=== PATIENT | female | born 1990 | race Hispanic/Latino ===

== ENCOUNTER 2018-05-08 17:32 | Emergency (ER) | payer SELFPAY ==
[~2018-05-08] VITALS: Ht 154.9 cm; Wt 79.4 kg
[2018-05-08 18:24] LABS: ABSOLUTE BASOPHIL COUNT 0 /CUMM (0.0-0.2); ABSOLUTE EOSINOPHIL COUNT 0 /CUMM (0.0-0.7); ABSOLUTE MONOCYTE COUNT 0.7 /CUMM (0.10-0.60); BASOPHIL % 0.3 % (0.0-2.0); EOSINOPHIL % 0.3 % (0-5); GRANULOCYTE % 71.6 % (42.2-75.2); HEMATOCRIT 38.1 % (37-47); MEAN CORPUSCULAR HGB 23.7 PG (27.0-31.0); MEAN CORPUSCULAR HGB CONC 31.9 G/DL (33.0-37.0); MEAN CORPUSCULAR VOLUME 74.2 FL (81.0-99.0); MEAN PLATELET VOLUME 12.6 FL (7.4-10.4); PLATELET COUNT 249 /CUMM (130-400); RBC DISTRIBUTION WIDTH 15.2 % (11.5-14.5); RED BLOOD CELL CT 5.14 /CUMM (4.20-5.40); WHITE BLOOD CELL COUNT 9.8 /CUMM (4.8-10.8)
--- NOTE | 2018-05-08 19:20 | ED GENERAL ADULT ---
History of Present Illness General Chief Complaint: General Adult Stated Complaint: "SWOLLEN GLANDS IN MY THROAT" Source: patient Exam Limitations: no limitations Vital Signs & Intake/Output Vital Signs & Intake/Output Vital Signs Date Time Temp Pulse Resp B/P B/P Pulse O2 O2 Flow FiO2 Mean Ox Delivery Rate 05/08 2008 82 18 147/65 100 Room Air 05/08 1832 70 18 132/60 100 Room Air 05/08 1829 Room Air 05/08 1739 97.7 85 20 134/84 98 Room Air Allergies Coded Allergies: acetaminophen (From PERCOCET) (UPSET STOMACH 05/08/18) oxycodone (From PERCOCET) (UPSET STOMACH 05/08/18) Triage Note: PT TO ED C/O LEFT SIDED LYMPHNODE SWELLING X 6 WEEKS ON AND OFF. STATES THIS AM NOTICED SWELLING UNDER CHIN. DENIES SORE THROAT, DENIES DIFFICULTY SWALLOWING, DENIES FEVERS. C/O FEELING "SORE" ALL OVER BODY. Triage Nurses Notes Reviewed? yes Onset: Abrupt Duration: week(s): (3), changing over time, continues in ED, intermittent Timing: single episode today Injury Environment: home Severity: mild, moderate Severity Numbers: 5 No Modifying Factors: none LMP (ages 10-50): unknown : No Patient currently breastfeeds: No HPI: 28 year old female history of anemia presents for evaluation of a swollen lymph node in her submental area. Patient reports that over the past 3 or 4 weeks she has had some swollen lymph nodes in her left submandibular area that have been present intermittently. She reports that she has had a breakout of pimples near where the lymph nodes are located. She states that a few days ago she developed a larger swollen lymph node under her chin. The area is tender. There is no redness no discharge no fever no sore throat or dental pain. She feels E fine. No weight loss night sweats fatigue. (Mathew Eldridge) Past History Travel History Traveled to [place] past 21 day No Medical History Any Pertinent Medical History? see below for history Blood Disorders: anemia Surgical History Surgical History: non-contributory Psychosocial History What is your primary language Hungarian Tobacco Use: Quit >30 days ago ETOH Use: denies use Illicit Drug Use: denies illicit drug use Family History Hx Contributory? No (Mathew Eldridge) Review of Systems Review of Systems Constitutional: Reports: no symptoms. EENTM: Reports: see HPI (lymphadenopathy). Respiratory: Reports: no symptoms. Cardiovascular: Reports: no symptoms. GI: Reports: no symptoms. Genitourinary: Reports: no symptoms. Musculoskeletal: Reports: no symptoms. Skin: Reports: no symptoms. Neurological/Psychological: Reports: no symptoms. Hematologic/Endocrine: Reports: no symptoms. Immunologic/Allergic: Reports: no symptoms. All Other Systems: Reviewed and Negative (Mathew Eldridge) Physical Exam Physical Exam General Appearance: well developed/nourished, no apparent distress, alert, awake Head: atraumatic, normal appearance Eyes: Bilateral: normal appearance, PERRL, EOMI. Ears, Nose, Throat: normal pharynx, normal ENT inspection, hearing grossly normal Neck: normal inspection, supple, full range of motion, submental lymphadenopathy , no anterior cervical submandibular or clavicular lymph nodes Respiratory: normal breath sounds, chest non-tender, no respiratory distress, lungs clear Cardiovascular: regular rate/rhythm, normal peripheral pulses Peripheral Pulses: 2+ radial (R), 2+ radial (L) Gastrointestinal: soft, non-tender Back: normal inspection, normal range of motion Extremities: normal inspection, normal range of motion, no edema Neurologic/Psych: no motor/sensory deficits, awake, alert, oriented x 3, normal gait Skin: intact, normal color, warm/dry Lymphatic: no anterior cervical jo Core Measures ACS in differential dx? No CVA/TIA Diagnosis: No Sepsis Present: No Sepsis Focused Exam Completed? No (Mathew Eldridge) Progress Differential Diagnoses I considered the following diagnoses in my evaluation of the patient: [Reactive lymph node, leukemia/lymphoma, pharyngitis, cellulitis, dental infection, abscess] Plan of Care: Orders Procedure Date/time Status COMPREHENSIVE METABOLIC PANEL 05/08 1740 Complete CBC WITHOUT DIFFERENTIAL 05/08 1740 Complete Laboratory Tests 05/08/18 1806: Anion Gap 10, Estimated GFR > 60, BUN/Creatinine Ratio 18.9, Glucose 86, Calcium 9.4, Total Bilirubin 0.4, AST 15, ALT 28, Alkaline Phosphatase 59, Total Protein 6.9, Albumin 4.0, Globulin 2.9, Albumin/Globulin Ratio 1.4, CBC w Diff NO MAN DIFF REQ, RBC 5.14, MCV 74.2 L, MCH 23.7 L, MCHC 31.9 L, RDW 15.2 H, MPV 12.6 H, Gran % 71.6, Lymphocytes % 20.4 L, Monocytes % 7.4, Eosinophils % 0.3, Basophils % 0.3, Absolute Granulocytes 7.0 H, Absolute Lymphocytes 2.0, Absolute Monocytes 0.7 H, Absolute Eosinophils 0, Absolute Basophils 0 Patient is here with submental lymphadenopathy. There is no signs of infection. They may have been caused by multiple pustules located in the nearby skin. No focal fluctuant areas or discharge no underlying erythema. Patient is afebrile. She has no constitutional symptoms. Basic blood work was obtained does not show any acute findings. She has no elevated white count. No signs of infection. Patient was instructed to use Benadryl and ibuprofen as needed apply warm compresses. Discussed return precautions in detail including signs of infection. Also return if you notice increasing lymph nodes at other areas. Patient agrees the plan Initial ED EKG: none (Mathew Eldridge) Departure Departure Disposition: HOME OR SELF CARE Condition: Stable Clinical Impression Primary Impression: Lymphadenopathy, submental Referrals: Patient Has No Primary Care Dr (PCP/Family) Additional Instructions: Ibuprofen as needed for pain and swelling. Benadryl for itching. Apply warm compresses for 15-20 minutes every few hours. Follow-up with the primary care doctor for a recheck within the next week. Monitor symptoms and return with any concern. Departure Forms: Customer Survey General Discharge Information (Mathew Eldridge) PA/[employer] Co-Sign Statement Statement: ED Attending supervision documentation- [] I saw and evaluated the patient. I have also reviewed all the pertinent lab results and diagnostic results. I agree with the findings and the plan of care as documented in the PA's/[employer]'s documentation. [x] I have reviewed the ED Record and agree with the PA's/[employer]'s documentation. [] Additions or exceptions (if any) to the PAs/[employer]'s note and plan are summarized below: [] (Gustavo Timmons DO) Critical Care Note Critical Care Note Critical Care Time: non-applicable (Mathew Eldridge)
[2018-05-08 20:08] VITALS: BP 147/65
== END 2018-05-08 20:05 ==
LOC: ERH 17:32
PROVIDERS: Physician Assistant
DX: R59.1 Generalized enlarged lymph nodes (principal)